=== PATIENT | male | born 1950 | race Caucasian/White ===

== ENCOUNTER 2018-01-04 08:44 | Day surgery (SDC) | payer MEDICARE, OTHER, SELFPAY ==
--- NOTE | 2018-01-04 | PATH_ITS ---
[facility] Accession Number: [id number] . 01 Material submitted: . PART A: RECTAL POLYP AT 18 PART B: SPLENIC FLEXURE POLYP AT 40 PART C: TRANSVERSE COLON AT 60 . 02 Diagnosis: A. Rectal Polyp at 18 cm: Tubulovillous adenoma. Negative for high-grade dysplasia or malignancy. . B. Splenic Flexure Polyp at 40 cm: Fragments of tubulovillous adenoma. Negative for high-grade dysplasia or malignancy. . C. Designated Transverse Colon Polyp at 60 cm: Tubular adenoma. MRV/01/06/2018 . 02 Electronically signed: . Paddy Ariza MD, PhD, Pathologist NPI- [id number] . 01 Gross description: . Received are three formalin-filled containers, each labeled with the patient's name: . A. In a container labeled rectal polyp at 18, the specimen consists of a 0.7 x 0.6 x 1.0 cm portion of tissue, which is bisected and totally submitted in cassette A. B. In a container labeled 2. Splenic flexure polyp at 40, the specimen consists of two 0.5-0.7 cm portions of tissue, entirely submitted in cassette B. C. In a container labeled 3. Transverse colon at 60, the specimen consists of a 0.3 cm portion of tissue, entirely submitted in cassette C. ([id number]) /FRR . 02 Pathologist provided ICD-10: D12.3, D12.8 . 02 CPT . 683459, 388592, [id number] Performed at: 01 [facility] [address], [place], [place] [id number] MD Travis Naranjo MD Phone: [phone] Performed at: 02 [facility] [address] [place] [id number] MD Jez Olmos MD Phone: [phone]
[2018-01-04] MEDS: SODIUM CHLORIDE 0.9% 1,000 ML 200 ML IV (08:55)
[2018-01-04 08:59] VITALS: BP 149/86; PULSE 67; RESP 16; TEMP 35.9; O2SAT 96; BMI 28.0
--- NOTE | 2018-01-04 09:18 | P.HP_ITS ---
History of Present Illness Date Patient Seen: 01/04/18 Time Patient Seen: 09:12 Chief complaint: [id number] Narrative: 67-year-old male with personal history of colon polyps. His last endoscopy was 5 years ago. He had polyps removed at that time. He also has a family history of colon cancer in his father. He presents now for surveillance. He has no new abdominal symptoms such as nausea, vomiting, loss of appetite, abdominal pain, unexplained weight loss, change in bowel habits, diarrhea, constipation, melena, hematochezia, or bright red blood per rectum. Colonoscopy is once again recommended. Patient History Medical History Gout (Acute) Hyperlipidemia (Acute) Hypertension (Acute) Type 2 diabetes mellitus (Acute) Myocardial infarction (Resolved) Surgical History Colon polyps (Resolved) Colonoscopy planned (Inactive) History of heart artery stent (Inactive) Family & Social History Family History: Reviewed 01/04/18 by Chad Delatorre MD Social History: household members spouse Meds Home Medications Medication Instructions Recorded Confirmed Type allopurinol 100 mg PO QDAY #90 tab 08/12/16 01/04/18 Rx metformin 1,000 mg PO BIDCC #180 tab 08/12/16 01/04/18 Rx aspirin [Aspir-81] 81 mg PO DAILY 01/04/18 01/04/18 History atorvastatin 40 mg PO DAILY 01/04/18 01/04/18 History fenofibrate 54 mg PO DAILY 01/04/18 01/04/18 History lisinopril 10 mg PO DAILY 01/04/18 01/04/18 History metoprolol tartrate 25 mg PO BID 01/04/18 01/04/18 History Allergies Allergy/AdvReac Type Severity Reaction Status Date / Time No Known Drug Allergies Allergy Verified 01/04/18 08:59 Review of Systems Review of Systems All systems reviewed & are unremarkable except as noted in HPI and below Exam Vital Signs (past 8 hours): Vital Signs - 8 hr 3 01/04/18 08:59 Temperature 96.6 F L Pulse Rate 67 Respiratory Rate 16 Blood Pressure 149/86 H Pulse Oximetry 96 Pulse Oximetry 96 Oxygen Delivery Method Room Air Narrative Exam Narrative: Well-nourished well-developed male in no acute distress. Alert oriented x3. Sclera nonicteric Regular rate and rhythm Abdomen soft, nondistended, nontender, no masses Extremities show no clubbing, cyanosis, or edema Assessment & Plan Plan: 67-year-old male with personal history of colon polyps and family history of colon cancer requiring colorectal screening since it has been 5 years from his last exam. Colonoscopy is once again recommended. Technical details of the procedure were discussed. Risks, benefits, and alternatives were explained. Risks including but not limited to sedation, aspiration, bleeding, pain, missed lesion, incomplete examination, need for further radiographic studies, colonic perforation, need for major abdominal surgery, and all attendant risks of major surgery were explained in detail. All questions were answered to his satisfaction, and he voiced understanding. Consent was placed on the chart. We will proceed as above.
--- NOTE | 2018-01-04 09:18 | PM.PREOP ---
Pre-operative Note Interval Note Pre-op Check: History & Physical Reviewed by Physician, Exam Performed and History & Physical exam performed today H&P completed within 30 days and has changed as indicated here:: Patient seen and examined today. History and physical examination documented on the chart. No changes. We will proceed with colonoscopy today as planned. ASA Class (for procedural sedation): II
[2018-01-04] MEDS: MIDAZOLAM 5 MG/5 ML VIAL IV (09:39)
[2018-01-04] MEDS: fentaNYL 250 MCG/5 ML INJ IV (09:40)
--- NOTE | 2018-01-04 09:52 | PM.OP.ENDO ---
Operative Date/Time/Diagnoses - Date of procedure: 01/04/18 Time of procedure: 09:52 Pre-op diagnosis: Personal history of colon polyps and family history of colon cancer Post-op diagnosis: same Procedure & Clinicians Study performed: 1. Colonoscopy with hot snare polypectomies and cold forcep polypectomy 2. Kajal ink tattoo of polyps at 18 cm and 40 cm 3. Sedation per surgeon Same procedure as scheduled: Yes Indications: 67-year-old male with personal history of colon polyps and family history colon cancer. Last colonoscopy was 4 or 5 years ago. He had polyps removed at that time. He presents now for surveillance. Colonoscopy is once again recommended. Surgeon: Chad Delatorre Procedure Notes SCOAP/Timeout: Yes Procedure in detail: After obtaining informed consent, the patient was brought to the GI suite and placed in the left lateral decubitus position on the examination table. After placement of appropriate monitors, the patient was given incremental doses of Versed and Fentanyl until an appropriate level of sedation was achieved. A time out was held per SCOAP protocol. A digital rectal examination was performed and did not reveal any masses or obstructing lesions. The colonoscope was gently passed into the patient's anus and the entire colon navigated to the level of the cecum with minimal difficulty. Once in the cecum, the scope was withdrawn being sure to go before and beyond all mucosal folds and prominences and get an excellent examination. The findings are noted above. At the level of the rectal vault, the scope was retroflexed and the internal anal canal was examined. The scope was straightened and air aspirated from the colon. The instrument was removed from the patient's body and the procedure was concluded. The patient was allowed to awaken from sedation without difficulty and taken to the post-anesthesia care unit in good condition. Scope withdrawal time: 9:42 min Sedation minutes: 28 Findings: polyp (1. Rectal polyp at 18 cm 2. Splenic flexure polyp at 40 cm 3. Transverse colon polyp at 60 cm) Specimen(s): other (Three colon polyps as above. See findings for details.) Complications: none Recommendations: Colonscopy in 5 years, High fiber diet and Will call with biopsy results Plan for aftercare: 1. Discharge to home 2. Follow up with primary physician as scheduled Follow up: as needed Disposition: PACU
[2018-01-04 09:54] VITALS: BP 112/73; PULSE 68; RESP 18; TEMP 36.1
[2018-01-04 09:59] VITALS: BP 115/71; PULSE 64; RESP 16
[2018-01-04 10:12] VITALS: BP 120/72; PULSE 68; RESP 16; TEMP 36.6
[2018-01-04 10:26] VITALS: BP 103/73; PULSE 66; RESP 16; TEMP 36.3; O2SAT 93
== END 2018-01-04 10:40 | disposition home or self-care (01) ==
PROVIDERS: PCP Family Medicine; Referring Provider Family Medicine; Visit Provider Surgery
PROC: 0DJD8ZZ Inspection of Lower Intestinal Tract, Via Natural or Artificial Opening Endoscopic (ICD-10-PCS; CPT 45378; principal; 2018-01-04 09:45)
DX: Z86.010 Personal history of colon polyps (principal); Z80.0 Family history of malignant neoplasm of digestive organs; E78.00 Pure hypercholesterolemia, unspecified; I10 Essential (primary) hypertension; E11.9 Type 2 diabetes mellitus without complications; I25.2 Old myocardial infarction; D12.3 Benign neoplasm of transverse colon; D12.8 Benign neoplasm of rectum
CPT/HCPCS: 45385; 45380; 45381; 88305; 99152; 99153; J2250; J3010

== ENCOUNTER → 2021-02-12 09:24 | Outpatient (CLI) | payer MEDICARE, OTHER, SELFPAY ==
[2021-02-12 20:06] LABS: Add Manual Diff / Slide Review NO; Basophils Absolute Auto 0 /uL (0-100); Eosinophils Absolute Auto 200 /uL (0-450); Eosinophils Percent Auto 4.1 % (2-4); Hematocrit 46.2 % (41-53); Hemoglobin 15.7 g/dL (13.5-17.5); Lymphocytes Absolute Auto 1500 /uL (1100-4500); Lymphocytes Percent Auto 29.6 % (25-40); Mean Corpuscular Hemoglobin 27.9 PG (26-34); Monocytes Absolute Auto 500 /uL (0-900); Neutrophils Absolute Auto 2800 /uL (1500-7000); Neutrophils Percent Auto 56.3 % (50-75); Platelet Count 257 X10^3/uL (150-400); Red Blood Cell Count 5.64 X10^6/uL (4.5-5.9); Red Cell Distribution Width 13.9 % (11.6-14.8)
[2021-02-12 20:19] LABS: Alanine Aminotransferase 25 IU/L (<50); Albumin 3.9 g/dL (3.5-5.0); Albumin Globulin Ratio 1.3 (1.0-2.8); Alkaline Phosphatase 63 U/L (38-126); Aspartate Aminotransferase 23 IU/L (17-59); BUN Creatinine Ratio 17.9 (6-22); Bilirubin Total 0.2 mg/dL (0.2-1.3); Blood Urea Nitrogen 14 mg/dL (9-20); Calcium 9.8 mg/dL (8.4-10.2); Carbon Dioxide 23 mmol/L (22-32); Chloride 108 mmol/L (98-107); Cholesterol 237 mg/dL (140-199); Estimated Glomerular Filt Rate > 60.0 mL/min (>60); Globulin 3.1 g/dL (1.7-4.1); Glucose 161 mg/dL (80-110); HDL Cholesterol 34 mg/dL (40-60); HEMOLYSIS < 15 (0-50); Potassium 4.3 mmol/L (3.4-5.1); Sodium 139 mmol/L (137-145)
[2021-02-12 20:37] LABS: Triglycerides 572 mg/dL (35-150)
[2021-02-12 20:45] LABS: Hemoglobin A1C% w Est Avg Glu 7.4 % (4.0-6.0)
== END ==
PROVIDERS: PCP Family Medicine; Visit Provider Family Medicine
DX: E11.9 Type 2 diabetes mellitus without complications (principal); I25.10 Atherosclerotic heart disease of native coronary artery without angina pectoris; I25.2 Old myocardial infarction
CPT/HCPCS: 80053; 80061; 83036; 85025

== ENCOUNTER → 2021-05-14 08:27 | Outpatient (CLI) | payer MEDICARE, OTHER, SELFPAY ==
[2021-05-14 19:15] LABS: Hemoglobin A1C% w Est Avg Glu 6.8 % (4.0-6.0)
[2021-05-14 19:18] LABS: Alanine Aminotransferase 29 IU/L (<50); Albumin 4.1 g/dL (3.5-5.0); Albumin Globulin Ratio 1.5 (1.0-2.8); Alkaline Phosphatase 47 U/L (38-126); Aspartate Aminotransferase 29 IU/L (17-59); Bilirubin Total 0.3 mg/dL (0.2-1.3); Blood Urea Nitrogen 14 mg/dL (9-20); Calcium 9.7 mg/dL (8.4-10.2); Carbon Dioxide 27 mmol/L (22-32); Chloride 106 mmol/L (98-107); Cholesterol 189 mg/dL (140-199); Estimated Glomerular Filt Rate > 60.0 mL/min (>60); Globulin 2.8 g/dL (1.7-4.1); Glucose 117 mg/dL (80-110); HDL Cholesterol 45 mg/dL (40-60); HEMOLYSIS < 15 (0-50); LDL Cholesterol Calculated 111 mg/dL (<100); Potassium 4.6 mmol/L (3.4-5.1); Sodium 140 mmol/L (137-145); Total Protein 6.9 g/dL (6.3-8.2); Triglycerides 167 mg/dL (35-150)
== END ==
PROVIDERS: PCP Family Medicine; Visit Provider Family Medicine
DX: E11.9 Type 2 diabetes mellitus without complications (principal); I25.10 Atherosclerotic heart disease of native coronary artery without angina pectoris; E78.5 Hyperlipidemia, unspecified
CPT/HCPCS: 80053; 80061; 83036

== ENCOUNTER → 2021-08-12 08:01 | Outpatient (CLI) | payer MEDICARE, OTHER, SELFPAY ==
[2021-08-12 19:45] LABS: Add Manual Diff / Slide Review NO; Basophils Absolute Auto 0 /uL (0-100); Basophils Percent Auto 1.3 % (0-2); Eosinophils Absolute Auto 100 /uL (0-450); Eosinophils Percent Auto 3.6 % (2-4); Hematocrit 43.1 % (41-53); Hemoglobin 14.5 g/dL (13.5-17.5); Lymphocytes Absolute Auto 1200 /uL (1100-4500); Lymphocytes Percent Auto 32.7 % (25-40); Mean Corpuscular HGB Conc 33.7 % (30-36); Mean Corpuscular Hemoglobin 28.1 PG (26-34); Mean Corpuscular Volume 83.3 fL (80-100); Monocytes Absolute Auto 300 /uL (0-900); Neutrophils Absolute Auto 2000 /uL (1500-7000); Neutrophils Percent Auto 53.4 % (50-75); Platelet Count 283 X10^3/uL (150-400); Red Blood Cell Count 5.17 X10^6/uL (4.5-5.9); Red Cell Distribution Width 13.5 % (11.6-14.8); White Blood Cell Count 3.8 X10^3/uL (4.5-11.0)
[2021-08-12 19:47] LABS: Hemoglobin A1C% w Est Avg Glu 6.6 % (4.0-6.0)
[2021-08-12 20:00] LABS: Alanine Aminotransferase 35 IU/L (<50); Albumin Globulin Ratio 1.4 (1.0-2.8); Alkaline Phosphatase 49 U/L (38-126); Aspartate Aminotransferase 31 IU/L (17-59); BUN Creatinine Ratio 17.8 (6-22); Bilirubin Total 0.4 mg/dL (0.2-1.3); Blood Urea Nitrogen 18 mg/dL (9-20); Calcium 9.8 mg/dL (8.4-10.2); Carbon Dioxide 26 mmol/L (22-32); Chloride 104 mmol/L (98-107); Cholesterol 186 mg/dL (140-199); Estimated Glomerular Filt Rate > 60.0 mL/min (>60); Globulin 2.9 g/dL (1.7-4.1); Glucose 146 mg/dL (80-110); HDL Cholesterol 35 mg/dL (40-60); HEMOLYSIS < 15 (0-50); LDL Cholesterol Calculated 111 mg/dL (<100); Potassium 4.6 mmol/L (3.4-5.1); Sodium 137 mmol/L (137-145); Total Protein 6.9 g/dL (6.3-8.2); Triglycerides 200 mg/dL (35-150)
== END ==
PROVIDERS: PCP Family Medicine; Visit Provider Family Medicine
DX: I25.10 Atherosclerotic heart disease of native coronary artery without angina pectoris (principal); E11.9 Type 2 diabetes mellitus without complications; I10 Essential (primary) hypertension; E78.2 Mixed hyperlipidemia
CPT/HCPCS: 80053; 80061; 83036; 85025

== ENCOUNTER → 2022-10-16 09:18 | Outpatient (CLI) | payer MEDICARE, OTHER, SELFPAY ==
[2022-10-16 19:42] LABS: BUN Creatinine Ratio 14.1 (6-22); Blood Urea Nitrogen 13 mg/dL (9-20); Calcium 9.3 mg/dL (8.4-10.2); Carbon Dioxide 24 mmol/L (22-32); Chloride 102 mmol/L (98-107); Cholesterol 183 mg/dL (140-199); Estimated Glomerular Filt Rate > 60 mL/min (>60); Glucose 122 mg/dL (80-110); HDL Cholesterol 38 mg/dL (40-60); HEMOLYSIS 22 (0-50); LDL Cholesterol Calculated 86 mg/dL (<100); Potassium 4.5 mmol/L (3.4-5.1); Sodium 136 mmol/L (137-145); Triglycerides 293 mg/dL (35-150)
[2022-10-16 20:06] LABS: Hemoglobin A1C% w Est Avg Glu 6.7 % (4.0-6.0)
[2022-10-16 20:52] LABS: Microalbumi Creatinin Ratio Ur 5.2 ug/mg CR (<30); Microalbumin Urine Random 0.8 mg/dL (0-1.6)
== END ==
PROVIDERS: PCP Family Medicine; Visit Provider Family Medicine
DX: E11.9 Type 2 diabetes mellitus without complications (principal); D12.6 Benign neoplasm of colon, unspecified; E78.2 Mixed hyperlipidemia; I10 Essential (primary) hypertension; I25.10 Atherosclerotic heart disease of native coronary artery without angina pectoris; I25.2 Old myocardial infarction
CPT/HCPCS: 80048; 80061; 82043; 82570; 83036

== ENCOUNTER → 2022-11-17 10:17 | Outpatient (CLI) | payer MEDICARE, OTHER, SELFPAY ==
--- NOTE | 2022-11-18 02:19 | DI.NM.S_ITS ---
DATE OF SERVICE: 11/17/2022 INDICATION: Known coronary artery disease with ST-elevation myocardial infarction on October 20, 2015. At that time, had occluded proximal LAD. Also, had 80% ostial circumflex followed by PCI in June, with underlying diabetes mellitus, hypertension, hyperlipidemia. Exercise perfusion study is being done for CAD risk stratification. RADIOPHARMACEUTICAL: 27.3 millicurie technetium-99m Myoview IV was injected at stress and 11.5 millicurie technetium-99m Myoview IV was injected at rest. CARDIAC STRESS: The patient underwent exercise perfusion study under the supervision of an attending staff. The patient walked on Rafi protocol for 4 minutes and 31 seconds, achieved maximum heart rate of 144, which was 96% of target heart rate. Resting blood pressure 120/70 and peak blood pressure 166/90 mmHg. Achieved 7 METs of workload. JASMYNE was not calculated.Baseline rhythm was sinus. During stress some nonspecific EKG changes seen. Intermittent PACs. No complex ventricular or supraventricular arrhythmias seen. No chest pain, however, patient has significant dyspnea and fatigue. RAW DATA: There is increased subdiaphragmatic activity. The patient's weight is 200 pounds. GATED STUDY: Stress LV ejection fraction 81 and resting LV ejection fraction 66%. Resting end-diastolic volume 100 mL. TID ratio 0.46, which is within normal limits. Lung/heart ratio 0.35, which is within normal limits. MYOCARDIAL PERFUSION SCAN: Stress supine, resting supine, and stress prone images were compared to each other. Resting supine images revealed small size, mildly decreased perfusion of basal inferior wall as well as inferoapex; however, the stress supine and stress prone images revealed normal myocardial perfusion. CONCLUSION: This is a normal myocardial perfusion study as stress supine and stress prone images revealed normal myocardial perfusion. Diminished exercise tolerance. The patient felt dyspnea and fatigue without any chest pain. No complex arrhythmias. Normal hemodynamic response. Preserved LV function. The patient has a perfusion study in November,. At that time also he had similar findings. No ischemia or infarction on stress images. In this study, summed stress score is zero. Overall as far as perfusion scan is concerned, low risk myocardial perfusion scan. Mike Limon - PRECIOUS/darin/khoi doc#: [id number]/job#: [id number] dd: 11/17/2022 17:27:00 dt: 11/18/2022 02:00:00 DICTATING MD/COPIES TO: Aldo Cordero MD COPIES MNE: VINH;
== END ==
PROVIDERS: PCP Family Medicine; Referring Provider Nurse Practitioner; Visit Provider Nurse Practitioner
DX: I25.10 Atherosclerotic heart disease of native coronary artery without angina pectoris (principal); I25.2 Old myocardial infarction; E11.9 Type 2 diabetes mellitus without complications; I10 Essential (primary) hypertension; E78.5 Hyperlipidemia, unspecified; Z95.5 Presence of coronary angioplasty implant and graft
CPT/HCPCS: 78452; 93017; A9502

== ENCOUNTER → 2023-06-15 13:25 | Outpatient (CLI) | payer MEDICARE, OTHER, SELFPAY ==
[2023-06-15 19:28] LABS: BUN Creatinine Ratio 12.5 (6-22); Blood Urea Nitrogen 11 mg/dL (9-20); Calcium 9.4 mg/dL (8.4-10.2); Carbon Dioxide 23 mmol/L (22-32); Chloride 104 mmol/L (98-107); Cholesterol 143 mg/dL (140-199); Estimated Glomerular Filt Rate > 60 mL/min (>60); Glucose 160 mg/dL (80-110); HDL Cholesterol 34 mg/dL (40-60); HEMOLYSIS < 15 (0-50); LDL Cholesterol Calculated 73 mg/dL (<100); Potassium 4.1 mmol/L (3.4-5.1); Sodium 136 mmol/L (137-145); Triglycerides 181 mg/dL (35-150)
[2023-06-15 19:44] LABS: Hemoglobin A1C% w Est Avg Glu 7.7 % (4.0-6.0)
[2023-06-15 20:10] LABS: Creatinine Urine Random 89.6 mg/dL
[2023-06-15 20:15] LABS: Microalbumi Creatinin Ratio Ur 17.8 ug/mg CR (<30); Microalbumin Urine Random 1.6 mg/dL (0-1.6)
== END ==
PROVIDERS: PCP Family Medicine; Visit Provider Family Medicine
DX: E11.9 Type 2 diabetes mellitus without complications (principal); I10 Essential (primary) hypertension; E78.5 Hyperlipidemia, unspecified; I25.10 Atherosclerotic heart disease of native coronary artery without angina pectoris
CPT/HCPCS: 80048; 80061; 82043; 82570; 83036

== ENCOUNTER → 2024-01-06 11:58 | Outpatient (CLI) | payer MEDICARE, OTHER, SELFPAY ==
[2024-01-06 20:19] LABS: Add Manual Diff / Slide Review NO; Basophils Absolute Auto 0 /uL (0-100); Basophils Percent Auto 0.8 % (0-2); Eosinophils Absolute Auto 200 /uL (0-450); Eosinophils Percent Auto 3.5 % (2-4); Hematocrit 46.9 % (41-53); Hemoglobin 15.9 g/dL (13.5-17.5); Lymphocytes Absolute Auto 1900 /uL (1100-4500); Lymphocytes Percent Auto 32.4 % (25-40); Mean Corpuscular HGB Conc 33.9 % (30-36); Mean Corpuscular Hemoglobin 28.5 PG (26-34); Mean Corpuscular Volume 83.9 fL (80-100); Monocytes Absolute Auto 500 /uL (0-900); Monocytes Percent Auto 9.1 % (3-14); Neutrophils Absolute Auto 3200 /uL (1500-7000); Neutrophils Percent Auto 54.2 % (50-75); Platelet Count 267 X10^3/uL (150-400); Red Blood Cell Count 5.59 X10^6/uL (4.5-5.9); Red Cell Distribution Width 13.8 % (11.6-14.8); White Blood Cell Count 5.8 X10^3/uL (4.5-11.0)
[2024-01-06 20:24] LABS: Hemoglobin A1C% w Est Avg Glu 7.1 % (4.0-6.0)
[2024-01-06 20:26] LABS: Cholesterol 178 mg/dL (140-199); HDL Cholesterol 40 mg/dL (40-60); LDL Cholesterol Calculated 92 mg/dL (<100); Triglycerides 232 mg/dL (35-150)
[2024-01-06 22:06] LABS: Creatinine Urine Random 49.82 mg/dL
[2024-01-06 22:12] LABS: Microalbumin Urine Random < 0.6 mg/dL (0-1.6)
== END ==
PROVIDERS: PCP Family Medicine; Visit Provider Family Medicine
DX: I10 Essential (primary) hypertension (principal); E11.9 Type 2 diabetes mellitus without complications; E78.5 Hyperlipidemia, unspecified; I25.10 Atherosclerotic heart disease of native coronary artery without angina pectoris; I25.2 Old myocardial infarction
CPT/HCPCS: 80061; 82043; 82570; 83036; 85025

== ENCOUNTER 2024-01-29 08:48 | Day surgery (SDC) | payer MEDICARE, OTHER, SELFPAY ==
[2024-01-29 09:40] VITALS: BP 135/82; PULSE 83; RESP 16; TEMP 36.6; O2SAT 94
[2024-01-29] MEDS: LACTATED RINGERS 1,000 ML 42 ML IV (09:40)
--- NOTE | 2024-01-29 10:12 | P.HP_ITS ---
History of Present Illness History of Present Illness Date Patient Seen: 01/29/24 Time Patient Seen: 10:12 Chief complaint: Colonoscopy Narrative: 73-year-old man personal history of colonic polyps here for screening colonoscopy. His father had colon cancer age 80. No abdominal concerns today. Last colonoscopy 2017. [facility] Medical History Gout Hyperlipidemia Hypertension Myocardial infarction Controlled type 2 diabetes mellitus (10/23/15) Surgical History Colon polyps Colonoscopy planned History of heart artery stent Family History Father Cancer Social History household members: spouse Smoking Status: Former smoker alcohol intake: never Meds Home Medications and Allergies Home Medications Medication Instructions Recorded Confirmed Type aspirin 81 mg tablet,delayed 81 mg PO DAILY 01/04/18 01/29/24 History release (Aspir-) peg 3350-sod sulf,zculz-wny-sue 1,000 ml PO DIRECTED #2,000 mL 09/01/23 10/22/23 Rx 178.7-7.3-0.5-1.12-0.9 gram oral soln (Suflave) atorvastatin 40 mg tablet (Lipitor) 40 mg PO BEDTIME #90 tabs 09/17/23 01/29/24 Rx metformin 1,000 mg tablet,extended 1,000 mg PO DAILY #90 tabs 10/22/23 01/29/24 Rx release 24hr (osmotic) lisinopril 5 mg tablet 10 mg (2 x 5 mg) PO DAILY #180 tabs 12/25/23 01/29/24 Rx fenofibrate 54 mg tablet 54 mg PO DAILY #90 tabs 01/11/24 01/29/24 Rx Allergies Allergy/AdvReac Type Severity Reaction Status Date / Time No Known Drug Allergies Allergy Verified 01/29/24 09:36 Exam Vital Signs (past 8 hours): - 01/29/24 09:40 Temperature 97.8 F Pulse Rate 83 Respiratory Rate 16 Blood Pressure 135/82 Pulse Oximetry 94 Oxygen Delivery Method Room Air Oxygen Delivery Method Room Air Narrative Exam Narrative: General adult man alert oriented no acute distress Chest nonlabored respiration Extremities warm well perfused Assessment & Plan Assessment & Plan narrative: The patient requires colorectal screening and colonoscopy is recommended. Technical details were discussed. Risks, benefits, alternatives explained. Risks including but not limited to myocardial infarction, aspiration, bleeding, pain, missed lesion, incomplete examination, need for further radiographic studies, intestinal injury, and need for major abdominal surgery were discussed. All questions were answered to their satisfaction, and they are in agreement with this plan.
[2024-01-29 10:46] VITALS: BP 115/71; PULSE 71; RESP 16; TEMP 36.2; O2SAT 94
[2024-01-29 10:51] VITALS: BP 109/69; PULSE 69; RESP 17; O2SAT 94
[2024-01-29 10:56] VITALS: BP 115/72; PULSE 70; RESP 14; TEMP 36.2; O2SAT 93
--- NOTE | 2024-01-29 10:58 | P.OP.COLON_ITS ---
Operative Date/Time/Diagnoses Date of procedure: 01/29/24 Time of procedure: 10:58 Pre-op diagnosis: Family history of colon cancer Post-op diagnosis: other Procedure & Clinicians Study performed: Screening colonoscopy Same procedure as scheduled: Yes Indications: Colorectal screening Family history colon cancer Surgeon: Ravin Peterson Procedure Notes Procedure in detail: The history and physical was performed/updated and the patient is ASA class is 2. The procedure was discussed in detail with the patient. Potential risks complications including infection, bleeding, missed diagnosis, perforation, need for surgery, and were explained. Their questions were answered and informed consent was obtained. Patient was brought to the procedure room and placed standard monitoring equipment. The patient's vital signs were monitored continuously throughout the entire procedure. Prior to starting time-out was performed. The patient was placed in the left lateral recumbent position. Procedural sedation was administered by anesthesia. Examination began with a thorough inspection of the perianal area there was no evidence of fissures, fistulae, external hemorrhoids or cutaneous malignancy. The colonoscopy scope was then placed into the anal canal and was advanced to the cecum, which was identified by the ileocecal valve, the appendiceal orifice and the confluence of the taenia. The scope was then slowly withdrawn examining colon thoroughly in all directions, irrigating it of any residual stool. The scope was retroflexed within the rectum The patient tolerated the procedure well. They will be discharged once criteria are met. The prep was of good/excellent quality. The withdrawl time was 6 minutes. FINDINGS * Unremarkable colonoscopy. No polyps masses or inflammation. Specimen(s): none sent Impression: Normal colonoscopy Post-procedure Recommendations: Colonoscopy in 5 years (For family history of colon cancer) Disposition: same day surgery
[2024-01-29 11:02] VITALS: BP 120/80; PULSE 69; RESP 16; TEMP 36.2; O2SAT 96
== END 2024-01-29 11:17 | disposition home or self-care (01) ==
PROVIDERS: PCP Family Medicine; Referring Provider Surgery; Visit Provider Surgery
PROC: 0DJD8ZZ Inspection of Lower Intestinal Tract, Via Natural or Artificial Opening Endoscopic (ICD-10-PCS; CPT 45378; principal; 2024-01-29 09:45)
DX: Z12.11 Encounter for screening for malignant neoplasm of colon (principal); Z80.0 Family history of malignant neoplasm of digestive organs
CPT/HCPCS: G0105; J2704

== ENCOUNTER → 2024-06-27 10:36 | Outpatient (CLI) | payer MEDICARE, OTHER, SELFPAY ==
[2024-06-27 19:23] LABS: Hemoglobin A1C% w Est Avg Glu 6.6 % (4.0-6.0)
[2024-06-27 19:31] LABS: BUN Creatinine Ratio 15.8 (6-22); Blood Urea Nitrogen 16 mg/dL (9-20); Calcium 9.5 mg/dL (8.4-10.2); Carbon Dioxide 26 mmol/L (22-32); Chloride 108 mmol/L (98-107); Cholesterol 106 mg/dL (140-199); Estimated Glomerular Filt Rate > 60 mL/min (>60); Glucose 110 mg/dL (80-110); HDL Cholesterol 43 mg/dL (40-60); HEMOLYSIS < 15 (0-50); LDL Cholesterol Calculated 41 mg/dL (<100); Potassium 4.3 mmol/L (3.4-5.1); Sodium 138 mmol/L (137-145); Triglycerides 111 mg/dL (35-150)
== END ==
PROVIDERS: PCP Family Medicine; Visit Provider Family Medicine
DX: I10 Essential (primary) hypertension (principal); E11.9 Type 2 diabetes mellitus without complications; E78.2 Mixed hyperlipidemia; I25.10 Atherosclerotic heart disease of native coronary artery without angina pectoris
CPT/HCPCS: 80048; 80061; 83036

== ENCOUNTER → 2025-01-31 09:21 | Outpatient (CLI) | payer MEDICARE, OTHER, SELFPAY ==
[2025-01-31 21:07] LABS: Add Manual Diff / Slide Review NO; Hematocrit 42.8 % (41-53); Hemoglobin 14.6 g/dL (13.5-17.5); Lymphocytes Absolute Auto 1700 /uL (1100-4500); Mean Corpuscular HGB Conc 34.0 % (30-36); Mean Corpuscular Hemoglobin 28.1 PG (26-34); Mean Corpuscular Volume 82.5 fL (80-100); Platelet Count 217 X10^3/uL (150-400)
[2025-01-31 21:12] LABS: Hemoglobin A1C% w Est Avg Glu 6.5 % (4.0-6.0)
[2025-01-31 21:14] LABS: Blood Urea Nitrogen 15 mg/dL (9-20); Calcium 9.3 mg/dL (8.4-10.2); Carbon Dioxide 23 mmol/L (22-32); Chloride 106 mmol/L (98-107); Cholesterol 134 mg/dL (140-199); Estimated Glomerular Filt Rate > 60 mL/min (>60); Glucose 127 mg/dL (70-99); HDL Cholesterol 41 mg/dL (40-60); HEMOLYSIS 16 (0-50); Potassium 4.5 mmol/L (3.4-5.1); Sodium 138 mmol/L (137-145); Triglycerides 207 mg/dL (35-150)
[2025-01-31 21:30] LABS: Microalbumi Creatinin Ratio Ur 6.0 ug/mg CR (<30)
== END ==
PROVIDERS: PCP Family Medicine; Visit Provider Family Medicine
DX: I25.10 Atherosclerotic heart disease of native coronary artery without angina pectoris (principal); Z12.5 Encounter for screening for malignant neoplasm of prostate; E11.9 Type 2 diabetes mellitus without complications; E78.2 Mixed hyperlipidemia; I10 Essential (primary) hypertension; I25.2 Old myocardial infarction
CPT/HCPCS: 80048; 80061; 82043; 82570; 83036; 85025; G0103

== ENCOUNTER → 2025-07-11 08:22 | Outpatient (CLI) | payer MEDICARE, OTHER, SELFPAY ==
[2025-07-11 18:54] LABS: Add Manual Diff / Slide Review NO; Hematocrit 45.6 % (41-53); Hemoglobin 15.5 g/dL (13.5-17.5); Lymphocytes Absolute Auto 1500 /uL (1100-4500); Mean Corpuscular HGB Conc 34.0 % (30-36); Mean Corpuscular Hemoglobin 27.8 PG (26-34); Mean Corpuscular Volume 81.6 fL (80-100); Platelet Count 224 X10^3/uL (150-400)
[2025-07-11 19:19] LABS: Hemoglobin A1C% w Est Avg Glu 7.0 % (4.0-6.0)
[2025-07-11 19:22] LABS: Alanine Aminotransferase 33 IU/L (<50); Albumin 4.2 g/dL (3.5-5.0); Albumin Globulin Ratio 1.5 (1.0-2.8); Alkaline Phosphatase 51 U/L (38-126); Blood Urea Nitrogen 11 mg/dL (9-20); Calcium 9.3 mg/dL (8.4-10.2); Carbon Dioxide 23 mmol/L (22-32); Chloride 107 mmol/L (98-107); Cholesterol 107 mg/dL (140-199); Estimated Glomerular Filt Rate > 60 mL/min (>60); Globulin 2.8 g/dL (1.7-4.1); Glucose 150 mg/dL (70-99); HDL Cholesterol 42 mg/dL (40-60); HEMOLYSIS 23 (0-50); Potassium 4.7 mmol/L (3.4-5.1); Sodium 140 mmol/L (137-145); Total Protein 7.0 g/dL (6.3-8.2); Triglycerides 118 mg/dL (35-150)
[2025-07-12 17:16] LABS: Microalbumi Creatinin Ratio Ur 6.0 ug/mg CR (<30)
== END ==
PROVIDERS: PCP Family Medicine; Visit Provider Family Medicine
DX: I10 Essential (primary) hypertension (principal); E11.9 Type 2 diabetes mellitus without complications; E78.2 Mixed hyperlipidemia
CPT/HCPCS: 80053; 80061; 82043; 82570; 83036; 85025